=== PATIENT | male | born 1990 | race Caucasian/White ===

== ENCOUNTER 2022-06-04 15:22 | Observation (INO) | payer OTHER, BC ==
[~2022-06-04 15:22] MED LIST: Iopamidol-370 76% 500 ML 1 ML ONE
[2022-06-04] MEDS ORDERED: Fentanyl 100 MCG/2 ML VIAL ONE (15:32)
[2022-06-04 15:44] LABS: #Basophils 0.1 thou/uL (0.0-0.2); #Eosinphils 0.2 thou/uL (0.0-0.7); #Monocytes 0.8 thou/uL (0.11-0.59); #Neutrophils 14.9 thou/uL (1.40-6.50); %Basophils 0.3 % (0.0-1.0); %Eosinophils 1.2 % (0.0-10.0); %Lymphocytes 16.1 % (21.0-51.0); %Neutrophils 78.5 % (42.0-75.0); Hemoglobin 15.5 g/dL (14.0-18.0); Mean Corpuscular HGB CONC 34.6 g/dL (32.0-36.0); Mean Corpuscular Hemoglobin 32.4 pg (27.0-31.0); Mean Corpuscular Volume 93.4 fl (78.0-98.0); Mean Platelet Volume 7.3 fL (7.4-10.4); Platelet Count 473 10x3/uL (130-400); RBC Distribution Width 11.6 % (11.5-14.5); Red Blood Cell (RBC) Count 4.78 mill/uL (4.70-6.10); White Blood Cell (WBC) Count 18.9 10x3/uL (4.8-10.8)
[2022-06-04 16:03] LABS: ALT (SGPT) 36 U/L (8-55); AST (SGOT) 41 U/L (5-34); Albumin 4.1 g/dL (3.5-5.0); Alkaline Phosphatase 105 U/L (40-110); Anion Gap 13 mmol/L (10-20); BUN (Urea Nitrogen) 11 mg/dL (8.9-20.6); Bilirubin, Total 0.6 mg/dL (0.2-1.2); Calc. Creatinine Clearance 0 mL/min (70-130); Calcium 8.4 mg/dL (7.8-10.44); Carbon Dioxide 23 mmol/L (22-29); Chloride 104 mmol/L (98-107); Estimated GFR 90; Globulin 2.5 g/dL (2.4-3.5); Glucose 167 mg/dL (70-105); Lipase 40 U/L (8-78); Potassium 3.4 mmol/L (3.5-5.1); Protein, Total 6.6 g/dL (6.0-8.3); Sodium 137 mmol/L (136-145)
[2022-06-04] MEDS ORDERED: Morphine 4 MG/ML VIAL ONE (17:07)
[2022-06-04] MEDS ORDERED: Ketorolac Tromethamine 30 MG/ML VIAL ONE (18:09)
[2022-06-04] MEDS ORDERED: Dextrose 50% Abboject 50 ML SYRINGE SLOW IVP PRN (18:12)
[2022-06-04] MEDS ORDERED: Ondansetron PF 4 MG/2 ML Vial IVP PRN (18:12)
[2022-06-04] MEDS ORDERED: Dextrose 5% in Water 1,000 ML IV PRN (18:12)
[2022-06-04] MEDS ORDERED: Ondansetron ODT 4 MG TAB PO PRN (18:12)
[2022-06-04] MEDS ORDERED: Promethazine HCl 25 MG/ML VIAL IM PRN (18:12)
[2022-06-04] MEDS ORDERED: hydrALAZINE 20 MG/ML VIAL SLOW IVP PRN (18:12)
[2022-06-04 20:27] VITALS: BMI 27.3
[2022-06-04 20:54] LABS: PTT 26.2 sec (22.9-36.1); Prothrombin Time 13.8 sec (12.0-14.7)
[2022-06-04 21:03] LABS: Bacteria/HPF None Seen HPF (None Seen); Bilirubin Negative (Negative); Blood, Urine 3+ (Negative); CAUTI Indications for Culture Pelvic or flank pain; Clarity Clear (Clear); Glucose, Urine (Dipstick) Normal (Negative); Ketone, Urine Negative (Negative); Leukocyte Negative Leu/uL (Negative); Nitrite Negative (Negative); Protein, Urine (Dipstick) 10 mg/dL (Neg-Trace); RBC/HPF Greater than 50 HPF (0-3); Specific Gravity, Urine 1.047 (1.002-1.036); Squamous Epithelial 0-3 HPF (0-3); Urobilinogen Normal mg/dL (Less than 2); WBC/HPF 0-3 HPF (0-3)
[2022-06-04 21:04] LABS: Lactic Acid 3.3 mmol/L (0.5-2.2)
[2022-06-04 21:07] LABS: Urine Culture Reflex No No
[2022-06-04 21:07] LABS: Magnesium 1.6 mg/dL (1.6-2.6); Phosphorus 1.7 mg/dL (2.3-4.7)
[2022-06-04 21:25] LABS: SARS-CoV-2 NAA Rapid Test Not Detected (NotDetected)
[2022-06-04] MEDS ORDERED: Magnesium 2 GM/50 ML(in water) 2 GM in Premix Bag 1 BAG IVPB SCH (22:00)
[2022-06-04] MEDS ORDERED: TETANUS, DIPHTHERIA TOX,ADULT (TDVAX) 0.5 ML VIAL IM ONE (22:00)
[2022-06-04] MEDS: Sodium Chloride 0.9% 1,000 ML IV SCH (22:10)
[2022-06-04] MEDS: Morphine 4 MG/ML VIAL SLOW IVP PRN (22:11)
[2022-06-04] MEDS: Famotidine/PF 20 mg/2ml Vial SLOW IVP SCH (22:14)
[2022-06-04] MEDS ORDERED: Potassium Phosphate 30 MMOL in Sodium Chloride 0.9% 500 ML IVPB SCH (22:15)
[2022-06-05] MEDS: Morphine 4 MG/ML VIAL SLOW IVP PRN ×3 (05:18→10:28)
[2022-06-05 06:29] LABS: Lactic Acid 1.8 mmol/L (0.5-2.2)
[2022-06-05 06:33] LABS: #Monocytes 0.7 thou/uL (0.11-0.59); #Neutrophils 6.5 thou/uL (1.40-6.50); %Basophils 0.1 % (0.0-1.0); %Eosinophils 0.2 % (0.0-10.0); %Lymphocytes 12.2 % (21.0-51.0); %Monocytes 8.7 % (0.0-10.0); %Neutrophils 78.8 % (42.0-75.0); Hemoglobin 12.8 g/dL (14.0-18.0); Mean Corpuscular HGB CONC 33.5 g/dL (32.0-36.0); Mean Corpuscular Hemoglobin 31.5 pg (27.0-31.0); Mean Corpuscular Volume 94.1 fl (78.0-98.0); Mean Platelet Volume 7.1 fL (7.4-10.4); Platelet Count 285 10x3/uL (130-400); RBC Distribution Width 11.5 % (11.5-14.5); Red Blood Cell (RBC) Count 4.07 mill/uL (4.70-6.10); White Blood Cell (WBC) Count 8.2 10x3/uL (4.8-10.8)
[2022-06-05 06:37] LABS: Anion Gap 11 mmol/L (10-20); BUN (Urea Nitrogen) 11 mg/dL (8.9-20.6); Calc. Creatinine Clearance 139 mL/min (70-130); Calcium 7.7 mg/dL (7.8-10.44); Carbon Dioxide 22 mmol/L (22-29); Chloride 106 mmol/L (98-107); Estimated GFR 98; Glucose 124 mg/dL (70-105); Potassium 4.2 mmol/L (3.5-5.1); Sodium 135 mmol/L (136-145)
[2022-06-05] MEDS: Sodium Chloride 0.9% 1,000 ML IV SCH (06:51)
[2022-06-05 07:59] LABS: Phosphorus 3.5 mg/dL (2.3-4.7)
[2022-06-05] MEDS: Famotidine/PF 20 mg/2ml Vial SLOW IVP SCH (08:30)
[2022-06-05 09:09] VITALS: TEMP 98.9
[2022-06-05] MEDS ORDERED: traMADol HCl 50 MG TAB PO PRN (11:21)
[2022-06-05] MEDS ORDERED: Acetaminophen 500 MG TAB PO SCH (12:00)
[2022-06-05] MEDS ORDERED: traMADol HCl 50 MG TAB PO SCH (12:00)
[2022-06-05] MEDS ORDERED: Morphine 4 MG/ML VIAL SLOW IVP PRN ×2 (12:53→13:13)
[2022-06-05] MEDS ORDERED: Sodium Chloride 0.9% 1,000 ML IV SCH (13:00)
[2022-06-05 13:27] VITALS: BP 125/79
[2022-06-05] MEDS ORDERED: Famotidine 20 MG TAB PO SCH (21:00)
== END 2022-06-05 14:06 | disposition short-term general hospital (02) ==
LOC: ERS 15:22 → SJJU 16:57
PROVIDERS: ADMIT Surgery; ATTEND Surgery
DX: S32.050A Wedge compression fracture of fifth lumbar vertebra, initial encounter for closed fracture (principal); S92.152A Displaced avulsion fracture (chip fracture) of left talus, initial encounter for closed fracture; S92.062A Displaced intraarticular fracture of left calcaneus, initial encounter for closed fracture; S92.412A Displaced fracture of proximal phalanx of left great toe, initial encounter for closed fracture; S92.322A Displaced fracture of second metatarsal bone, left foot, initial encounter for closed fracture; S92.332A Displaced fracture of third metatarsal bone, left foot, initial encounter for closed fracture; S92.342A Displaced fracture of fourth metatarsal bone, left foot, initial encounter for closed fracture; S36.892A Contusion of other intra-abdominal organs, initial encounter; R18.8 Other ascites; G89.11 Acute pain due to trauma; F17.290 Nicotine dependence, other tobacco product, uncomplicated; Z20.822 Contact with and (suspected) exposure to COVID-19; V43.62XA Car passenger injured in collision with other type car in traffic accident, initial encounter
CPT/HCPCS: 29515; 36415; 70450; 71045; 71260; 72125; 72170; 74177; 80048; 80053; 81001; 83605; 83690; 83735; 84100; 85025; 85610; 85730; 86850; 86900; 86901; 96365; 96374; 96375; 96376; G0378; G0390; J1885; J2270; J3010; J3475; J7030; J7050; Q9967; S0028; U0002